=== PATIENT | male | born 1945 | race Caucasian/White ===

== ENCOUNTER → 2016-05-25 | Outpatient (CLI) | payer MEDICARE, BC ==
[~2016-05-25] MED LIST: ASPIR 8181 MG PO; CHONDROITIN SU250 MG PO; CPAP INH; FLEXERIL10 MG PO; FLUNISOLIDE25 ML NOSE; GLUCOSAMINE H1500 MG PO; K-TAB ER20 MEQ PO; LASIX40 MG PO; LIPITOR40 MG PO; LISINOPRIL-HCT1 EAC1 PO; NORVASC10 MG PO; OCUVITE SOFTGE1 EACH PO; PROTONIX40 MG PO; PROVENTIL OR V6.7 GM INH; SELENIUM200 MC1 PO; SPIRIVA18 MCG INH; TOPROL XL25 MG PO; WELLBUTRIN SR150 MG PO; ZYRTEC10 MG PO
--- NOTE | ~2016-05-25 | PUL ---
PATIENT'S NAME: ABHAY TEE [facility] AGE: 70 Y [address] ROOM: [place] [address] LOCATION: [facility] ADMIT DATE: 05/25/2016 Pulmonary DISCHARGE DATE: FAMILY PHYSICIAN: PHYSICIAN, NO ATTENDING PHYSICIAN: SCOUT DUVALL NAME OF PROCEDURE: Pulmonary Function Test DATE OF PROCEDURE: May 25, 2016 TECH: CELENA Early REASON FOR EXAM: Dyspnea on exertion RESULTS: 1. FVC was 3.16 liters which is 63% of predicted and low, FEV1 was 1.81 liters which is 49% of predicted and low, and FEV1/FVC was 57% and low. The flow volume curve revealed significant airflow limitation. After bronchodilator administration FVC increased to 3.33 liters which is a 5% increase, and FEV1 increased to 2.03 liters which is a 12% increase. FEV1/FVC was 61%. 2. DLCO was 19.2 with an adjusted DLCO of 19.4 which is 78% of predicted and normal. 3. Total lung capacity was 5.33 liters which is 73% of predicted and low, and residual volume was 2.17 liters which is 80% of predicted and normal. 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 His diffusion capacity is normal. MD FRED BOCANEGRA/shannon /[id number] dtt: 05/26/16 0942 , SCOUT DUVALL dtd: 05/26/16 0756
--- NOTE | ~2016-05-25 | ECHO ---
Transthoracic Echocardiography Report (TTE) Demographics Patient Name ABHAY TEE Date of Study 05/25/2016 Patient Number [id number] Visit Number [id number] Date of 1945 Room Number Accession Number [id number] Gender Male Age 70 year(s) Referring Erwin Galeano Perfume And Toilet Water Maker Harshil [place] Physician Physician Interpreting Serge vAila Handbag Finisher Physician A MD Supervising Ordering Physician Erwin Galeano MD/MLP Nurse Stress Electrical And Instrumentation Mechanic Conclusions Contractility Score Summary Summary The estimated left ventricular ejection fraction is 50%. The left atrium is mildly dilated. The right atrium is mildly dilated. There is moderate aortic regurgitation by color Doppler. The left ventricle is normal in size . Diastolic assessment reveals Grade II pseudonormal diastolic function . Apical hypokinesis. Procedure Type of Study TTE procedure:2D Echocardiogram, M-Mode, Doppler , Color Doppler. Procedure Date Date: 05/25/2016 Start: 07:46 AM Study Location: Echo Lab Technical Quality: Good visualization Indications:Dyspnea with exertion and Bilateral lower extremity edema. Additional Indications:COPD Appropriate Use Criteria: 9 Patient Status: Routine HR: 73 bpm BP: 130/66 mmHg M-Mode/2D Measurements LV Diastolic Dimension: 4.76 cm LV Systolic Dimension: 3.22 cm LV Septum Diastolic: 0.98 cm LV PW Diastolic: 1 cm AO Root Dimension: 2.2 cm Cardiac Output: 5.34 l/min LA Dimension: 3 cm EF Estimated: 65 % LVOT: 2 cm LVOT VTI: 23.3 cm RV Base: 2.29 cm LV Stroke volume: 73.16 ml RV Length: 7.64 cm TAPSE: 1.93 cm TDI-S': 13.3 cm/s Doppler Measurements AV Peak Velocity: 1.86 m/s MV Peak E-Wave: 1.02 m/s AV Peak Gradient: 13.84 mmHg MV Peak A-Wave: 0.82 m/s AV Mean Gradient: 8 mmHg MV E/A Ratio: 1.24 LVOT Peak Velocity: 1.06 m/s MV P1/2t: 60 msec AV P1/2t: 417 msec TR Gradient:18.49 mmHg PV Peak Velocity: 1.07 m/s Estimated RAP:8 mmHg PV Peak Gradient: 4.58 mmHg Estimated RVSP: 26 mmHg Estimated PASP: 26.49 mmHg E' Septal Velocity: 0.08 m/s A' Septal Velocity: 0.1 m/s E' Lateral Velocity: 0.18 m/s A' Lateral Velocity: 0.15 m/s Findings Left Ventricle The left ventricle is normal in size . Diastolic assessment reveals Grade II pseudonormal diastolic function . Apical hypokinesis. Right Ventricle Normal right ventricle structure and function. Left Atrium The left atrium is mildly dilated. Right Atrium The right atrium is mildly dilated. IVC measures 1.71 cm with inspiratory collapse. Mitral Valve Trivial mitral regurgitation by color Doppler. Mild mitral annular calcification. Aortic Valve The aortic valve is mildly sclerotic. There is moderate aortic regurgitation by color Doppler. Tricuspid Valve Trivial tricuspid regurgitation by color Doppler. Pulmonic Valve Normal pulmonic valve structure and function. Pericardial Effusion No evidence of pericardial effusion. Miscellaneous Visualized portions of the aortic root and ascending aorta appear normal in size. Pleural Effusion No evidence of pleural effusion. Contractility Score LV regional wall motion:(0-Non visualized 1-Normal 2-Hypokinesis 3-Akinesis 4-Dyskinesis 5-Aneurysm) Signature dtt: Gerardo Valentine dtd: 05/25/16 0746 Physician Self Edit
--- NOTE | ~2016-05-25 | PUL ---
PATIENT'S NAME: ABHAY TEE [facility] AGE: 70 Y [address] ROOM: [place] [address] LOCATION: [facility] ADMIT DATE: 05/25/2016 Pulmonary DISCHARGE DATE: FAMILY PHYSICIAN: PHYSICIAN, NO ATTENDING PHYSICIAN: SCOUT DUVALL NAME OF PROCEDURE: Six Minute Walk Test DATE OF PROCEDURE: May 25, 2016 TECH: CELENA Early REASON FOR EXAM: Dyspnea on exertion RESULTS: The test was performed on room air. The patient walked for 1400 feet at a pace of 2.65 miles/hour. His oxygen saturation was 94% at the beginning of the test, and was 96% after the test. He had appropriate increases in his heart rate and blood pressure. His perceived dyspnea was 3/10 on the Giorgi scale. PHYSICIAN INTERPRETATION: The patient does not have any significant limitation in his exercise capacity. There are no significant desaturations or hypoxia during exercise on room air. MD FRED BOCANEGRA/sahnnon /[id number] dtt: 05/26/16 0944 JADIEL RADU F dtd: 05/26/16 0802
== END | disposition disaster alternative care site (69) ==
LOC: GRTH 06:42
DX: R06.09 Other forms of dyspnea (principal); M79.89 Other specified soft tissue disorders; I35.1 Nonrheumatic aortic (valve) insufficiency; J98.4 Other disorders of lung

== ENCOUNTER → 2016-07-14 | Outpatient (CLI) | payer MEDICARE, BC ==
[2016-07-14 09:04] LABS: ALBUMIN 3.5 gm/dL (3.5-5.0); ALK PHOS 97 IU/L (33-138); ALT 24 IU/L (12-78); ANION GAP 12.8 (10.0-19.0); AST 11 IU/L (10-40); BLOOD UREA NITROGEN 17 mg/dL (6-24); CHLORIDE 106 mMol/L (96-110); CO2 28 mMol/L (22-32); ESTIMATED GFR (MDRD EQUATION) > 60; POTASSIUM 3.8 mMol/L (3.7-5.1); SODIUM 143 mMol/L (135-145); TOTAL BILIRUBIN 0.7 mg/dL (0.0-1.5); TOTAL PROTEIN 7.2 g/dL (6.0-8.4)
== END | disposition disaster alternative care site (69) ==
LOC: LNHI 08:41
PROVIDERS: Internal Medicine Interventional Cardiology
DX: I10 Essential (primary) hypertension (principal); E78.2 Mixed hyperlipidemia; I25.10 Atherosclerotic heart disease of native coronary artery without angina pectoris

== ENCOUNTER 2016-07-24 05:52 | Outpatient (CLI) | payer MEDICARE, BC ==
[~2016-07-24] VITALS: Ht 185.4 cm; Wt 92.6 kg
--- NOTE | ~2016-07-24 | CATH ---
Cardiac Diagnostic Report Demographics Patient Name RANDAL Severino Gender Male Date of 1945 Age 71 year(s) Patient Number [id number] Date of Study 07/24/2016 Visit Number [id number] Room Number G63[address] [place] [id number] Ht 185 cm Wt 92.6 kg Referring [facility] Primary Physician Physician Destiney DODGE Performing [facility] Secondary Physician Physician Destiney DODGE Diagnostic [facility] Assisting Physician Physician Destiney DODGE Interventional Physician Master Technician Physician Findings and Conclusions Diagnostic Findings and Conclusion Moderate lesion in distal LAD 50% tubular lesion. PCI not indicated. LVEDP 9 mmHg. Diagnostic Recommendations Medical management. Patient will be discharged later today. Follow up visit in 1 month with bmp . Continue current medications. Patient has been instructed to not lift anything more than 5 pounds for 1 week. Aggressive risk factor management. Aggressive medical therapy for coronary artery disease. Optimization of medical therapy as an outpatient. Procedure Description The patient was brought to the diagnostic cardiac catheterization-EP laboratory in the fasting, non-sedated state. Informed consent was obtained in the written and verbal form after the risks and benefits were explained. The patient had no further questions and agreed to proceed. The planned puncture-incision site(s) were shaved and prepped with ChloraPrep and draped in the usual sterile manner. Conscious sedation, supplemental oxygen, and pain control medications were delivered by a registered nurse under physician guidance. Surface ECG rhythm, blood pressure measurement, and pulse oximetry were monitored throughout the procedure. Arterial access. The access site was infiltrated with lidocaine. The vessel was entered with the Seldinger technique. A sheath was advanced into the vessel and used for catheter placement. Selective left coronary angiography. A catheter was advanced into the left coronary vessel ostium under Fluoroscopic guidance. Contrast was injected by hand. Images were obtained in multiple projections. Selective right coronary angiography. A catheter was advanced into the right coronary vessel ostium under fluoroscopic guidance. Contrast was injected by hand. Images were obtained in multiple projections. Left heart catheterization. A catheter was advanced across the aortic valve to the left ventricle under fluoroscopic guidance. Resting hemodynamics were obtained. Arterial artery hemostasis was achieved. The patient was transferred to a regular nursing floor via cart accompanied by a nurse. The patient left the laboratory in stable condition. Procedure Procedure Type Diagnostic procedure:Angiography:, Coronary Angios w/[facility] Indications: Shortness of breath. The procedure was explained in detail to the patient. Risks, complications and alternative treatments were reviewed. Written consent was obtained. Medications Reviewed with Patient prior to Procedure. Angiographic Findings Dominance: Right Cardiac Arteries and Lesion Findings LMCA: Normal (0% Stenosis). LAD: Abnormal.prox 10%, distal 50% Lesion on Prox LAD: 10% stenosis . Lesion on Dist LAD: 50% stenosis . LCx: Normal (0% Stenosis). RCA: Normal (0% Stenosis). Coronary Tree Procedure Data Procedure Date Date: 07/24/2016Start: 07:45 AMEnd: 08:38 AM Entry Locations - Retrograde Percutaneous access was performed through the Right Radial artery (Primary location). A 6 Fr sheath was inserted. Hemostasis was successfully obtained using a TR band. Closure Comments: 12cc air by Concepcion. Procedure Medications Order and Administration + + + + + !Time !Medication !Dosage !Route ! + + + + + !07/24/2016 07:41 AM !Oxygen !4 l/min !NC ! + + + + + !07/24/2016 07:40 AM !Versed !1 mg !I.V. ! + + + + + !07/24/2016 07:43 AM !Fentanyl !50 mcg ! ! + + + + + !07/24/2016 07:49 AM !Heparin (ACC_3) !5000 units !I.V. bolus ! + + + + + !07/24/2016 08:03 AM !0.9% NaCl !500 ml !I.V. bolus ! + + + + + Devices Used - A5 Fr. BS JR 4 Diag. Catheterwas used for:Right coronary angiography. - A5 Fr. BS JL 3.5 Diag. Catheterwas used for:Left coronary angiography. - A6 Fr. JJ 3DRC Diag. Catheterwas used for:Right coronary angiography. - A6 Fr. BS Angled Pigtail Diag. Catheterwas used for:LV Pressures. Contrast Material - Isovue 99664 ml Fluoroscopy Time: Diagnostic: 5:30 minutes. Total: 5:30 minutes. Fluoroscopy Dose: Diagnostic: 881 mGy. Total: 881 mGy. Estimated Blood Loss: 5 ml. Medical History Allergies - Sulfa. - Other:(mepivacaine). Risk Factors The patient risk factors include:hypercholesterolemia, hypertension, chronic lung disease, dyslipidemia and former tobacco use. Admission Data Admission Date: 07/24/2016 Admission Time: 05:52 AM Arrival Date: 07/24/2016 Arrival Time: 12:00 AM Admit Source: Other Insurance Payors: Medicare. Admission Medications + +------+------+ + + + + !Medication !Dosage!Times !Last !Last !Administered !Comments ! ! ! !Per !Delivery !Delivery ! ! ! ! ! !Day !Date !Time ! ! ! + +------+------+ + + + + !Aspirin ! ! !07/24/2016 !12:00 AM !Yes ! ! !(any) ! ! ! ! ! ! ! + +------+------+ + + + + !Statin ! ! !07/24/2016 !12:00 AM !Yes ! ! !(any) ! ! ! ! ! ! ! + +------+------+ + + + + !KERWIN ! ! !07/24/2016 !12:00 AM !Yes ! ! !Inhibitor ! ! ! ! ! ! ! !(any) ! ! ! ! ! ! ! + +------+------+ + + + + !Beta ! ! !07/24/2016 !12:00 AM !Yes ! ! !Gloria ! ! ! ! ! ! ! !(any) ! ! ! ! ! ! ! + +------+------+ + + + + Hemodynamics Condition: Rest O2 Consumption: Estimated: 249.21Heart Rate: 67 bpm Pressures (mmHg) +-----+ + !Site !Pressure ! +-----+ + !AO !114/69 (89) ! +-----+ + !LV !86/3 ,9 ! +-----+ + !LV !89/1 ,9 ! +-----+ + !AO !87/56 (70) ! +-----+ + !LV !89/7 ,20 ! +-----+ + Valve Gradients and Areas + +---------+---------+---------+ +---------+ + !Valve !Peak !Mean !Area !Index !Flow !Source ! + +---------+---------+---------+ +---------+ + !Aortic !2 !0 ! ! ! ! ! + +---------+---------+---------+ +---------+ + !Aortic !2 !0 ! ! ! ! ! + +---------+---------+---------+ +---------+ + Shunts Oxygen Values O2 Capacity 195.84 O2 Consumption 249.21 Discharge Data Discharge Date: 07/24/2016 Hospital Status: Outpatient Signatures dtt: DESTINEY CORONEL dtd: 07/24/16 0745 Physician Self Edit
[~2016-07-24 05:52] MED LIST changes: -ZYRTEC10 MG PO
[2016-07-24 06:50] LABS: BASOPHIL % 0.7 %; EOSINOPHIL # 0.2 K/uL (0.0-0.5); EOSINOPHIL % 2.7 %; HEMATOCRIT 43.6 % (37.0-53.0); HEMOGLOBIN 14.4 g/dL (11.0-16.0); IMMATURE GRANULOCYTE % 0.3 %; LYMPHOCYTE # 0.8 K/uL (0.8-4.0); LYMPHOCYTE % 14.4 %; MCH 28.4 pg (27.0-34.0); MONOCYTE # 0.5 K/uL (0.0-1.0); MONOCYTE % 8.2 %; MPV 10.6 fl (9.4-12.4); NEUTROPHIL # (ANC) 4.3 K/uL (1.4-9.0); NEUTROPHIL % 73.7 %; NRBC % 0 /100WBC (0-0.00); PLATELET COUNT 271 K/uL (150-450); RBC 5.07 M/uL (3.50-5.50); WBC 5.8 K/uL (4.0-11.0)
[2016-07-24 06:58] LABS: INR - (THERAPEUTIC) 0.95 (0.92-1.07); PTT 29 SECONDS (25-32)
[2016-07-24 07:07] LABS: ALBUMIN 3.3 gm/dL (3.5-5.0); ALK PHOS 95 IU/L (33-138); ALT 27 IU/L (12-78); ANION GAP 10.7 (10.0-19.0); AST 19 IU/L (10-40); BLOOD UREA NITROGEN 27 mg/dL (6-24); CALCIUM 8.8 mg/dL (8.5-10.5); CHLORIDE 106 mMol/L (96-110); CO2 26 mMol/L (22-32); CREATININE 1.1 mg/dL (0.6-1.3); ESTIMATED GFR (MDRD EQUATION) > 60; POTASSIUM 3.7 mMol/L (3.7-5.1); SODIUM 139 mMol/L (135-145); TOTAL PROTEIN 6.9 g/dL (6.0-8.4)
[2016-07-24 07:08] LABS: TOTAL BILIRUBIN 0.3 mg/dL (0.0-1.5)
[2016-10-17] MEDS ORDERED: ZYRTEC10 MG PO (15:17)
== END 2016-07-24 13:10 | disposition disaster alternative care site (69) ==
LOC: GCAT 05:52 → GPCU 05:52 → GPOC 06:00 → GCAT 13:10 → GPOC 15:00
PROVIDERS: Internal Medicine Interventional Cardiology
PROC: 4A023N7 Measurement of Cardiac Sampling and Pressure, Left Heart, Percutaneous Approach (ICD-10-PCS; principal; 2016-07-24)
PROC: B216YZZ Fluoroscopy of Right and Left Heart using Other Contrast (ICD-10-PCS; 2016-07-24)
DX: R06.00 Dyspnea, unspecified (principal); E78.5 Hyperlipidemia, unspecified; I25.10 Atherosclerotic heart disease of native coronary artery without angina pectoris
CPT/HCPCS: C1769; J1644; J2001; J2250; J3010; J7030

== ENCOUNTER → 2016-08-18 | Outpatient (CLI) | payer MEDICARE, BC ==
[~2016-08-18] MED LIST changes: +ZYRTEC10 MG PO
[2016-08-18 09:58] LABS: ANION GAP 11.8 (10.0-19.0)
[2016-08-18 10:05] LABS: POTASSIUM 3.8 mMol/L (3.7-5.1)
== END | disposition disaster alternative care site (69) ==
LOC: LNHI 09:44
PROVIDERS: Internal Medicine Interventional Cardiology
DX: E78.4 Other hyperlipidemia (principal); I35.1 Nonrheumatic aortic (valve) insufficiency; I25.119 Atherosclerotic heart disease of native coronary artery with unspecified angina pectoris; I10 Essential (primary) hypertension

== ENCOUNTER → 2016-10-17 | Outpatient (CLI) | payer MEDICARE, BC | END | disposition disaster alternative care site (69) | LOC: GRAD 10:51 | DX: R31.9 Hematuria, unspecified (principal); N20.0 Calculus of kidney ==

== ENCOUNTER → 2016-10-18 | Day surgery (SDC) | payer MEDICARE, BC ==
[~2016-10-18] VITALS: Ht 185.4 cm; Wt 93.0 kg
--- NOTE | ~2016-10-18 | OR ---
[facility] 71 [facility] [address] ROOM: [place] [address] LOCATION: [facility] [place] [facility] ADMIT DATE: 10/18/2016 OR/Procedure Report DISCHARGE DATE: FAMILY PHYSICIAN: KANCHAN KRAUSE MD ATTENDING PHYSICIAN: David Box SURGEON: David Box MD UPPER TIER: DATE OF PROCEDURE: 10/18/2016 PREOPERATIVE DIAGNOSIS: Hematuria. POSTOPERATIVE DIAGNOSES: 1. Bladder lesion. 2. Radiation cystitis. PROCEDURE: 1. Cystoscopy and right retrograde pyelogram. 2. Cystoscopy and endoscopic bladder biopsies. PROCEDURE IN DETAIL: After adequate anesthesia, he was prepped and draped. A 21 ACMI scope was passed. The urethra was normal. Prostate was absent. Examination of bladder revealed changes throughout the bladder consistent with radiation cystitis. On the right hemitrigone near the right orifice, there was a tumor that was bleeding, did not appear to be the typical transitional cell carcinoma. There was also some fullness of his right orifice. A right retrograde pyelogram was done. With endoscopic forceps, the tumor area was biopsied and then thoroughly fulgurated with the Bugbee electrode. He was then accompanied to recovery area. RETROGRADE PYELOGRAM REPORT: Initial film showed normal bony structures. After injection of contrast, there was some segmental dilatation of the distal ureter. Remaining ureter and upper collecting systems appeared normal. Drainage film showed good drainage from the right side. DAVID BOX MD PATIENT'S NAME: ABHAY TEE [facility] AGE: 71 Y [address] ROOM: [place] [address] LOCATION: [facility] [place] [facility] ADMIT DATE: 10/18/2016 OR/Procedure Report DISCHARGE DATE: FAMILY PHYSICIAN: KANCHAN KRAUSE MD ATTENDING PHYSICIAN: David Box EKL/modl /[id number] d: 10/18/16935 t: 10/20/16 0522, OPERATIVE SUMMARY
--- NOTE | ~2016-10-18 | HP ---
PATIENT'S NAME: ABHAY MESSER [facility] AGE: 71 Y [address] ROOM: [place] [address] LOCATION: [facility] [place] ADMIT DATE: 10/18/2016 History & Physical DISCHARGE DATE: FAMILY PHYSICIAN: KANCHAN KRAUSE MD ATTENDING PHYSICIAN: David Box DATE OF SERVICE: HISTORY: Abhay Messer is a 71-year-old white male who was well until October 13, 2016, when he began having total gross painless hematuria. He denied any CVA or flank pain and he had no dysuria, burning, or other voiding symptoms. Apparently, he had a similar episode in April 2016. He denies any dysuria or burning. He denies any systemic symptoms such as weight loss, anorexia. He has a past history of having adenocarcinoma of the prostate and had a total prostatectomy in 2003. Since then, his PSAs have all been undetectable. The patient was in [place] [phone], flying fixed-wings and questionable Agent [place] exposure. He has a past history of having right pneumonectomy for cancer of the lung in 2002. He has not smoked since 2002. PAST MEDICAL HISTORY: Illnesses: Hypertension, COPD. Operations: As above. ALLERGIES: SULFA. PHYSICAL EXAMINATION: GENERAL: A well-developed, well-nourished male. CHEST: Clear on the left. HEART: Normal sinus rhythm. ABDOMEN: Soft with no palpable masses. : Normal penis. Testicles are normal. Prostatic fossa is empty. DIAGNOSTIC DATA: CT scan shows some small stones bilaterally. There were also changes in the bladder with thickening of the bladder. PATIENT'S NAME: ABHAY MESSER [facility] AGE: 71 Y [address] ROOM: [place] [address] LOCATION: [facility] [place] ADMIT DATE: 10/18/2016 History & Physical DISCHARGE DATE: FAMILY PHYSICIAN: KANCHAN KRAUSE MD ATTENDING PHYSICIAN: David Box IMPRESSION: Gross hematuria with abnormal CT scan. PLAN: Cysto, bladder biopsy. DAVID BOX MD EKL/modl /[id number] D: [id number] T: [id number] HISTORY & PHYSICAL
== END | disposition disaster alternative care site (69) ==
LOC: GPOC 10-17 14:00 → GSDC 05:32 → GPOC 14:00
PROC: 0TBB8ZX Excision of Bladder, Via Natural or Artificial Opening Endoscopic, Diagnostic (ICD-10-PCS; principal; 2016-10-18)
PROC: BT1DZZZ Fluoroscopy of Right Kidney, Ureter and Bladder (ICD-10-PCS; 2016-10-18)
DX: N30.41 Irradiation cystitis with hematuria (principal); N32.9 Bladder disorder, unspecified; I10 Essential (primary) hypertension; E78.5 Hyperlipidemia, unspecified; J44.9 Chronic obstructive pulmonary disease, unspecified; Z88.2 Allergy status to sulfonamides; K21.9 Gastro-esophageal reflux disease without esophagitis; Z85.46 Personal history of malignant neoplasm of prostate; Z85.118 Personal history of other malignant neoplasm of bronchus and lung; Z90.79 Acquired absence of other genital organ(s); Z90.2 Acquired absence of lung [part of]; Z90.49 Acquired absence of other specified parts of digestive tract; Z98.890 Other specified postprocedural states
CPT/HCPCS: C1769; J0744; J2001; J7030